=== PATIENT | female | born 1955 | race Caucasian/White ===

== ENCOUNTER → 2017-11-04 | Outpatient (CLI) | payer BC ==
[~2017-11-04] MED LIST: NS 100 ML IV 100 ML IV ONE
[2017-11-04 08:54] LABS: CREATININE 1.11 mg/dL (0.55-1.02)
--- NOTE | 2017-11-04 12:05 | CT ---
HISTORY: Hiatal hernia, nausea, vomiting Study: CT abdomen and pelvis with contrast Comparison: None Technique: Multiple axial images of the abdomen and pelvis were obtained from the lung bases to the pubic symphy sis with the administration of IV contrast. Dose reduction techniques including automated exposure c ontrol (AEC) and adjustment of mA and kV were utilized. Findings: Minimal atelectasis and/or scarring are noted within the visualized lungs. Diffuse decreased attenuat ion throughout the liver suggests fatty infiltration. Correlate clinically as other causes of hepatic disease may produce a similar appearance. The spleen, pancreas, adrenals, and kidneys are grossly un remarkable in appearance. No CT evidence of hydronephrosis is identified. Surgical clips are noted wi thin the gallbladder fossa. An additional surgical clip is seen along the medial aspect of the inferi or right hepatic lobe. A small hiatal hernia is demonstrated. A tubular structure within the right lo wer quadrant felt to represent the appendix is otherwise grossly unremarkable. The urinary bladder is not well distended which limits evaluation. Degenerative changes of the visualized spine are noted. IMPRESSION: Hepatic steatosis. Small hiatal hernia. Cholecystectomy. Reported By:
== END ==
LOC: RAD 08:18
PROVIDERS: ATTEND Internal Medicine
DX: R11.2 Nausea with vomiting, unspecified (principal); K76.0 Fatty (change of) liver, not elsewhere classified; K44.9 Diaphragmatic hernia without obstruction or gangrene
CPT/HCPCS: 36415; 74177; 82565; 84520; A4222